=== PATIENT | male | born 1980 | race Caucasian/White ===

== ENCOUNTER 2018-12-09 16:55 | Emergency (ER) | payer SELFPAY ==
--- NOTE | 2018-12-09 17:40 | C.PDOC ---
History Of Present Illness 38 y/o male presents to the ED with chief complaint of penile pain associated with burning on urination for 5 days. Patient also noted some blood on urination. He complains of suprapubic abdominal pain and bilateral low back pain. Denies any fever, chills, urinary incontinence, testicular pain, penile discharge, or rash. Time Seen by Provider: 12/09/18 17:28 Chief Complaint (Nursing): Male Genitourinary History Per: Patient History/Exam Limitations: no limitations Onset/Duration Of Symptoms: Days Current Symptoms Are (Timing): Still Present Associated Symptoms: Back Pain, Urinary Symptoms Alleviating Factors: None Past Medical History Reviewed: Historical Data, Nursing Documentation, Vital Signs Family History: States: No Known Family Hx - Social History Hx Tobacco Use: Yes Hx Alcohol Use: Yes Hx Substance Use: No - Immunization History Hx Tetanus Toxoid Vaccination: No Hx Influenza Vaccination: No Hx Pneumococcal Vaccination: No Review Of Systems Except As Marked, All Systems Reviewed And Found Negative. Constitutional: Negative for: Fever, Chills Cardiovascular: Negative for: Chest Pain Respiratory: Negative for: Cough, Shortness of Breath Gastrointestinal: Positive for: Abdominal Pain (suprapubic). Negative for: Vomiting, Diarrhea Genitourinary: Positive for: Dysuria, Hematuria, Penile Pain. Negative for: Incontinence, Penile Discharge, Scrotal Pain, Rash Musculoskeletal: Positive for: Back Pain Skin: Negative for: Lesions Neurological: Negative for: Weakness, Numbness Physical Exam - Physical Exam Appears: Non-toxic, No Acute Distress Skin: Warm, Dry, No Rash Head: Atraumatic, Normacephalic Eye(s): bilateral: Normal Inspection, PERRL, EOMI Oral Mucosa: Moist Neck: Normal ROM Chest: Symmetrical Cardiovascular: Rhythm Regular, No Murmur Respiratory: Normal Breath Sounds, No Rales, No Rhonchi, No Wheezing Gastrointestinal/Abdominal: Soft, Tenderness (suprapubic), Guarding (mild, suprapubic), No Rebound Back: Normal Inspection, No CVA Tenderness, No Vertebral Tenderness Male Genital: Normal Inspection, No Testicular Tenderness, No Testicular Swelling, Other (Cremaster reflex normal) Extremity: Bilateral: Atraumatic, Normal Color And Temperature, Normal ROM Pulses: Left Dorsalis Pedis: Normal, Right Dorsalis Pedis: Normal Neurological/Psych: Oriented x3, Normal Speech ED Course And Treatment - Laboratory Results Result Diagrams: 12/09/18 17:38 12/09/18 17:38 - CT Scan/US CT Abdomen/Pelvis Other Rad Studies (CT/US): Read By Radiologist, Radiology Report Reviewed CT/US Interpretation: Name:CAYLA RODRIGUEZ Exam Date:Dec 09, 2018 5:57:58 PM EST. Modality Type:CT. Description:CT - ABDOMEN AND PELVIS. Gender:M Laterality:Not applicable. :76 Referring Physician:William casiano MD, V. EXAM: CT Abdomen without IV contrast. CLINICAL HISTORY: Pelvic pain, hematuria. TECHNIQUE: Axial computed tomog josesito images of the abdomen and pelvis without intravenous contrast. 0.00 mGy- cm. CONTRAST: Without. COMPARISON: None provided. FINDINGS: LUNG BASES: The lung bases appear clear. No pleural effusions are seen. LIVER: Unremarkable. GALLBLADDER AND BILE DUCTS: The gallbladder appears within normal limits. No radioopaque gallstones are seen. No biliary ductal dilatation is evident. PANCREAS: Unremarkable. SPLEEN: Unremarkable. ADRENAL GLANDS: Unremarkable. KIDNEYS, URETERS, AND BLADDER: The kidneys appear within normal limits. There is no hydronephrosis or hydroureter. There is a large bladder calculus measuring approximately 3.1 x 2.3 cm along the posterior bladder wall. Prostate gland is moderately enlarged. Seminal vesicles appear prominent. STOMACH AND BOWEL: Unremarkable appearance of the stomach and bowel. No evidence of bowel obstruction. No evidence suggesting enteritis or colitis. APPENDIX: No evidence of acute appendicitis on CT examination. PERITONEUM: No free fluid. No free air. LYMPH NODES: No lymphadenopathy is evident. VASCULATURE: No evidence of abdominal aortic aneurysm. BONES: No aggressive appearing osseous lesion. No acute osseous pathology evident. IMPRESSION: No acute intra-abdominal abnormality. Large bladder calculus measuring approximately 3.1 x 2.3 cm. Moderate enlargement of the prostate gland. Clinical correlation advised. . Electronically signed on Dec 09, 2018 6:21:22 PM EST by: Ajith Villela M.D., Certified by [employer], Diagnostic Radiology Medical Decision Making Medical Decision Making: Plan: --CMP --CBC --GC/chlamydia --Urinalysis --Urine culture --CT Abdomen/Pelvis --30 mg IV Toradol Labs reviewed. 18:46 CT findings reviewed and discussed with patient. Paged urology on-call, Dr. Allie Vu. Answering service states to call Dr. Kati Vu. 18:[address] Kati Vu, imaging reviewed. Recommended Lezama Catheter placement, pain management and discharge. Patient to go to his office tomorrow at 0930 at [address] [facility]. Disposition Discussed With Dr.: Stephan Vu Doctor Will See Patient In The: Office Counseled Patient/Family Regarding: Studies Performed, Diagnosis, Need For Followup, Rx Given - Disposition Referrals: Stephan Vu MD [Staff Provider] - Disposition: HOME/ ROUTINE Disposition Time: 19:20 Condition: STABLE Additional Instructions: Follow up with Dr Horace Rothman tomorrow at 9:30 am, [address] [facility], cell number [phone] Prescriptions: oxyCODONE/Acetaminophen [Percocet 5/325 mg Tab] 1 ea PO TID #9 tab Instructions: Urinary Obstruction Forms: [facility] (Mongolian), General Discharge Instructions - POA Present On Arrival: None - Clinical Impression Clinical Impression: Bladder stone, Dysuria - Scribe Statement The provider has reviewed the documentation as recorded by the Shailesh Carpio Provider Attestation: All medical record entries made by the Shailesh were at my direction and personally dictated by me. I have reviewed the chart and agree that the record accurately reflects my personal performance of the history, physical exam, medical decision making, and the department course for this patient. I have also personally directed, reviewed, and agree with the discharge instructions and disposition. Physician Patient Turnover Patient Signed Over To: Ino Cruz Handoff Comments: Reevaluate pain
[2018-12-09 17:41] LABS: BASO % 0.9 % (0.0-2.0); EOS # 0.3 K/uL (0.0-0.7); EOS % 5.4 % (0.0-4.0); HEMOGLOBIN 16.4 g/dL (12.0-18.0); LYMPH # 1.4 K/uL (1.0-4.3); LYMPH % 27.8 % (20.0-40.0); MEAN CELL VOLUME 91.7 fL (80.0-94.0); MEAN CORPUSCULAR HEMOGLOBIN 31.4 pg (27.0-31.0); MEAN CORPUSCULAR HGB CONC 34.3 g/dL (33.0-37.0); MEAN PLATELET VOLUME 8.5 fL (7.2-11.7); MONO # 0.6 K/uL (0.0-0.8); NEUT # 2.8 K/uL (1.8-7.0); NEUT % 54.9 % (50.0-75.0); RBC 5.23 Mil/uL (4.40-5.90); RED CELL DISTRIBUTION WIDTH 13.5 % (11.5-14.5); WHITE BLOOD COUNT 5.2 K/uL (4.8-10.8)
[2018-12-09 18:07] LABS: ALB/GLOB RATIO 1.9 (1.0-2.1); ALBUMIN 4.7 g/dL (3.5-5.0); ALT/SGPT 23 U/L (21-72); AST/SGOT 20 U/L (17-59); BLOOD UREA NITROGEN 19 mg/dL (9-20); CALCIUM 9.4 mg/dl (8.6-10.4); GFR NON-AFRICAN AMERICAN > 60
[2018-12-09] MEDS ORDERED: Morphine 4 MG/ML VIAL IV ONE (18:59)
[2018-12-09] MEDS ORDERED: Morphine 4 MG/ML VIAL ONE ×2 (19:14→19:46)
[2018-12-09 20:09] LABS: SQUAMOUS EPITHIAL < 1 /hpf (0-5); URINE BACTERIA RARE (<OCC); URINE BILIRUBIN NEGATIVE (NEGATIVE); URINE BLOOD 1+ (NEGATIVE); URINE CLARITY Clear (Clear); URINE COLOR Yellow (YELLOW); URINE GLUCOSE (UA) NORMAL (Normal); URINE LEUKOCYTE ESTERASE NEG Leu/uL (Negative); URINE PROTEIN 2+ mg/dL (NEGATIVE); URINE UROBILINOGEN NORMAL mg/dL (0.2-1.0)
[2018-12-09] MEDS ORDERED: OXYBUTYNIN PO STA (21:08)
[2018-12-09] MEDS ORDERED: Oxycodone/Acetaminophen 5/325 mg Tab PO STA ×2 (21:09→23:38)
[2018-12-09] MEDS ORDERED: Oxycodone/Acetaminophen 5/325 mg Tab ONE ×2 (21:38→23:41)
[2018-12-09 23:48] VITALS: BP 124/78; PULSE 72; RESP 18; TEMP 97.9; O2SAT 100
--- NOTE | 2018-12-10 09:39 | CT ---
CT abdomen and pelvis HISTORY: Abdominal pain. Comparison: None available. Technique: Real-time sonography was performed through the abdomen and pelvis without the use of intravenous contrast. Subsequently, sagittal and coronal reformatted images were obtained. This CT exam was performed using one or more of the following dose reduction techniques: Automated exposure control, adjustment of the mA and/or kV according to patient size, and/or use of iterative reconstruction technique. Findings: 1 millimeter nodular density within the right middle lobe. Mild focal nodular consolidation at the lateral aspect of the right lower lobe. 1 millimeter nodular density within the posterior aspect of the left upper lobe. No pleural or pericardial effusion. Fatty infiltration of the liver. Contracted gallbladder. Spleen is preserved. Adrenal glands are preserved. Pancreas is preserved. Upper abdominal bowel is preserved. Right kidney: No calculi or hydronephrosis. Left Kidney: No calculi or hydronephrosis. Evaluation of the urinary bladder demonstrates a large calculus within the posterior urinary bladder measuring 3.2 x 2.7 centimeters extending to the level of the right ureterovesicular junction. Clinical correlation. Prominent prostate and seminal vesicles. Under distended descending and sigmoid colon. Fecal retention in the right hemicolon. Appendix is grossly preserved. Small fat containing bilateral inguinal hernias. Few shotty para-aortic and mesenteric nodes. Degenerative changes in the spine and shoulders. Impression: 1. Large calculus within the posterior urinary bladder measuring 3.2 x 2.7 centimeters extending to the level of the right ureterovesicular junction. Clinical correlation. 2. Moderate enlargement of the prostate gland. Clinical correlation. Additional findings as above. A preliminary report was generated at 6:21 p.m. on 12/09/[address] Ajith Villela from [employer]
== END 2018-12-09 23:50 | disposition home or self-care (01) ==
LOC: C.ER 16:55
DX: N21.0 Calculus in bladder (principal); R30.0 Dysuria
CPT/HCPCS: 74176; 80053; 81001; 85025; 87086; 87491; 87591; 96374; 96375; 96376; 99285; J1885; J2270; J2405